=== PATIENT | female | born 1985 | race Caucasian/White ===

== ENCOUNTER 2017-07-18 09:33 | Emergency (ER) | payer SELFPAY ==
[~2017-07-18] VITALS: Ht 172.7 cm; Wt 64.0 kg
[~2017-07-18 09:33] MED LIST: ALBU6.7H INH; BENZ100 PO; ZITH250T PO
[2017-07-18 09:46] VITALS: BP 121/77; PULSE 99; RESP 16; TEMP 98.3; O2SAT 100
--- NOTE | 2017-07-18 10:15 | PD ---
HPI Chief Complaint: Skin Problem Time Seen by Provider: 09:57 Travel History International Travel<30 days: No Contact w/Intl Traveler<30days: No Traveled to known affect area: No History of Present Illness HPI 31 year old female presents to the emergency department for evaluation of pruritus to her scalp for "several years". She denies any new or worsening symptoms. Patient states she googled her symptoms and states that she needs an oral medication because the shampoos won't be good enough. Patient has not yet seen a primary care physician for this issue. No exacerbating or alleviating factors. Mild severity. She has no chronic medical problems and takes no prescribed medications. History Past Medical Histgory LMP: 07/03/17 Social History Alcohol Use: No Tobacco Use: Yes (02/26 PPD) Allergies-Medications (Allergen,Severity, Reaction): Coded Allergies: Sulfa (Sulfonamide Antibiotics) (Unverified Allergy, Mild, 10/09/16) Reported Meds & Prescriptions Reported Meds & Active Scripts Active Zithromax Z-Candido (Azithromycin) 250 Mg Tab 250 Mg PO DIRECTED 500 MG (2 TABLETS) PO ON DAY 1, THEN 250 MG (1 TABLET) PO ON DAYS 2 TO 5. Proventil Hfa (Albuterol Sulfate) 6.7 Gm Aero 2 Puff INH Q4 PRN * SHAKE WELL BEFORE USE * Tessalon Perles (Benzonatate) 100 Mg Cap 100 Mg PO TID PRN Review of Systems Except as stated in HPI: all other systems reviewed are Neg Physical Exam Narrative GENERAL: Well-nourished, well-developed female patient, ambulatory. Afebrile. SKIN: Focused skin assessment warm/dry. Patient has mild patches of erythema and scaling of the scalp. HEAD: Normocephalic. Atraumatic. EYES: No scleral icterus. No injection or drainage. NECK: Supple, trachea midline. No JVD or lymphadenopathy. CARDIOVASCULAR: Regular rate and rhythm without murmurs, gallops, or rubs. RESPIRATORY: Breath sounds equal bilaterally. No accessory muscle use. Lung sounds are clear to auscultation. GASTROINTESTINAL: Abdomen soft, non-tender, nondistended. MUSCULOSKELETAL: No cyanosis, or edema. Data Data Last Documented VS Vital Signs Date Time Temp Pulse Resp B/P (MAP) Pulse Ox O2 Delivery O2 Flow Rate FiO2 07/18/17 09:46 98.3 99 16 121/77 (59) 100 MDM Medical Screen Exam Complete: Yes Emergency Medical Condition: No Differential Diagnosis Tinea capitis Narrative Course 31-year-old female presents to the emergency department for evaluation of itchiness to her scalp for several years. No emergent condition is identified on today's exam. A medical screening exam was performed: At the time of evaluation the presenting medical condition was determined not to be of an emergent nature. The patient was given the option of receiving additional care, but declined. Patient was given options for additional community resources from which to obtain care. The Patient Has Been advised to seek medical attention for their presenting complaint. The patient has been advised to return to the ER at any time if an emergent condition develops. Primary Impression: Encounter for medical screening examination Condition: Rosita Osuna July 18, 2017 10:15
== END 2017-07-18 10:17 | disposition left against medical advice (07) ==
LOC: NEPK 09:33
DX: B35.0 Tinea barbae and tinea capitis (principal)
CPT/HCPCS: 99281